=== PATIENT | female | born 1935 | race Caucasian/White ===

== ENCOUNTER → 2020-01-31 | Outpatient (CLI) | payer MEDICARE, OTHER ==
[~2020-01-31] MED LIST: HYDR-3101 PO; LEXISCAN IV ONE
--- NOTE | 2020-01-31 14:02 | STRESS ---
DATE OF SERVICE: 01/31/2020 CARDIAC STRESS TEST INDICATION FOR PROCEDURE: Chest pain. Baseline EKG shows normal sinus rhythm with nonspecific ST-T wave changes. Stress EKG shows normal sinus rhythm, unchanged from baseline. At recovery, EKG shows normal sinus rhythm, unchanged from baseline. Baseline blood pressure is noted to be 141/70 and remained the same during stress. At recovery, the blood pressure was 143/78. Baseline heart rate is 74 beats per minute and sharon to 93 beats per minute during stress. At recovery, the heart rate is 83 beats per minute. Blood pressure and heart rate were appropriate for stress. There were no significant symptoms noted during stress. There were no arrhythmias noted during stress. EKG portion of stress test is negative for myocardial ischemia. Nuclear images reveal homogeneous tracer distribution across all wall segments in both rest and stress images with no evidence of myocardial ischemia or infarction. TID is 2.39. Left ventricular ejection fraction is 77%. EDV is 23 mL, ESV is 5 mL. The left ventricle is normal in size. Gated motion images show normal wall motion across all segments of the left ventricle. IMPRESSION: 1. Normal myocardial perfusion imaging with no evidence of myocardial ischemia or infarction. 2. Left ventricular ejection fraction of 77%. 3. This is a negative study. SILVA LASSITER D.O. : BETINA/lefty JOB# [id number]
--- NOTE | 2020-01-31 20:07 | PCM.ECHO ---
APPROVED REPORT EXAM: Comprehensive 2D, Doppler, and color-flow Echocardiogram. Patient Location: OUT-PATIENT Indications Dyspnea 2D Dimensions LVOT Diameter 2.02 (1.8-2.4cm) LVEF(%) 45.58 (>50%) M-Mode Dimensions Left Atrium(MM) 5.10 (2.5-4.0cm) IVSd 0.85 (0.7-1.1cm) Aortic Root 2.55 (2.2-3.7cm) LVDd 5.10 (4.0-5.6cm) Aortic Cusp Exc 1.55 (1.5-2.0cm) PWd 0.65 (0.7-1.1cm) MV EPSS 0.43 (<0.5cm) IVSs 1.20 cm FS (%) 30.30 % LVDs 3.55 (2.0-3.8cm) ESV(Teich) 53.67 ml PWs 0.60 cm LVEF(%) 57.33 (>50%) Volumes Biplane 2D LV Volumes Biplane 2D LA Volumes LVESv A2C LA ESV A4C 22.18 mL/m2 LVEDv A4C 42.81 mL LA ESV Index LVESv A4C 31.02 mL Aortic Valve AoV Peak Carlos A. 1.10 m/s AoV VTI 26.65 cm AO Peak GR. 5.20 mmHg AO Mean GR. 3.90 mmHg LVOT VTI 18.11 cm LVOT Peak Carlos A. 0.72 m/s HALLIE(VTI)/BSA 2.18 cm2/m2 HALLIE (VTI) 2.18 cm2 AI P 1/2 Time 892.80 ms Mitral Valve MV E Velocity 0.70m/s MR Peak Gr. 32.40mmHg MV A Velocity 0.90m/s MV Mean Gr. 1.20mmHg E/A Ratio 0.8 TDI Lateral E' P. V 0.08m/s Medial E' P. V 0.05m/s E/Lateral E' 8.8 E/Medial E' 14.0 E/Septal E 14.0 Pulmonary Valve PV Peak Velocity 0.70m/s PV Peak Grad. 2.00mmHg RVOT VTI 15.24cm Tricuspid Valve TR P. Velocity 2.10m/s RAP ESTIMATE 10.00mmHg TR Peak Gr. 18.41mmHg RVSP 28.41mmHg LEFT VENTRICLE The left ventricle is normal size. The left ventricular systolic function is normal. The left ventricular ejection fraction is within the normal range. There is normal left ventricular wall thickness. There is normal LV segmental wall motion. There is no ventricular septal defect visualized. No left ventricle thrombus noted on this study. LVEF is 60-65%. RIGHT VENTRICLE The right ventricle is normal size. The right ventricular systolic function is normal. There is normal right ventricular wall thickness. ATRIA The left atrium size is normal. The right atrium size is normal. The interatrial septum is intact with no evidence for an atrial septal defect. AORTIC VALVE The aortic valve is normal in structure. There is no aortic valvular stenosis. Moderate to severe aortic regurgitation There is no aortic valvular vegetation. MITRAL VALVE The mitral valve is normal in structure. There is no mitral valve stenosis. Mild mitral regurgitation. There is no evidence of mitral valve vegetations. TRICUSPID VALVE The tricuspid valve is normal in structure. There is no tricuspid valve stenosis. Mild to moderate tricuspid regurgitation. There is no tricuspid valve vegetations. PULMONIC VALVE The pulmonary valve is normal in structure. There is no pulmonic valvular stenosis. Moderate pulmonic regurgitation. GREAT VESSELS The aortic root is normal in size. Pulmonary artery is not well visualized. Aortic arch is not well visualized. The IVC is normal in size and collapses >50% with inspiration. PERICARDIUM There is no pericardial effusion. There is no pleural effusion. Other Information Study Quality: Fair <Conclusion> The left ventricular systolic function is normal. LVEF is 60-65%. Moderate to severe aortic regurgitation Mild mitral regurgitation. Mild to moderate tricuspid regurgitation. Moderate pulmonic regurgitation. Electronically signed by : SILVA LASSITER. 01/31/2020 20:07:18
== END | disposition home or self-care (01) ==
LOC: RAD 10:25
PROVIDERS: ATTEND Internal Medicine Interventional Cardiology
DX: I08.8 Other rheumatic multiple valve diseases (principal); R06.02 Shortness of breath
CPT/HCPCS: 78452; 93017; 93306; A9500; J2785

== ENCOUNTER → 2020-02-11 | Outpatient (CLI) | payer MEDICARE, OTHER ==
[~2020-02-11] MED LIST changes: -LEXISCAN IV ONE
--- NOTE | 2020-02-14 13:55 | PRP ---
DATE OF PROCEDURE: 02/11/2020 VENOUS MAPPING ULTRASOUND INDICATION FOR PROCEDURE: Chronic venous insufficiency. RIGHT LOWER EXTREMITY: The right greater saphenous vein measures 10 mm in maximum diameter. Significant reflux is noted in the right GSV with maximum reflux of 2.7 seconds. The right GSV is noted to be extremely tortuous. The right small saphenous vein measures 2 mm in its maximum diameter. Significant reflux is also noted in the right small saphenous vein with maximum reflux of 1.7 seconds. There is no evidence of deep venous thrombosis in the right lower extremity. LEFT LOWER EXTREMITY: Left greater saphenous vein measures 12 mm in its maximum diameter. Significant reflux is noted in the left GSV with maximum reflux of 3.3 seconds. The left small saphenous vein measures 3 mm in its maximum diameter. Significant reflux is also noted in the left small saphenous vein with maximum reflux of 2.2 seconds. There is no evidence of deep venous thrombosis in the left lower extremity. A Matute's cyst measuring 5.2 x 2.1 x 3.0 cm is visualized adjacent to the popliteal vessels. IMPRESSION: 1. The right greater saphenous vein is dilated and displays pathological reflux. 2. The right small saphenous vein is normal sized but displays pathological reflux. 3. The left greater saphenous vein is dilated and displays pathological reflux. 4. The left small saphenous vein is normal sized but displays pathological reflux. 5. There is no evidence of deep venous thrombosis in the bilateral lower extremities. 6. An incidental finding of a Matute's cyst is visualized adjacent to the left popliteal vessel. RECOMMENDATION: Conservative measures of therapy including the use of compression stockings, leg elevation and exercise are recommended if clinically indicated. SILVA LASSITER D.O. DR: BETINA/lefty JOB# [id number]
== END | disposition home or self-care (01) ==
LOC: RAD 12:55
PROVIDERS: ATTEND Internal Medicine Interventional Cardiology
DX: I87.2 Venous insufficiency (chronic) (peripheral) (principal); I73.9 Peripheral vascular disease, unspecified; R06.02 Shortness of breath; M71.22 Synovial cyst of popliteal space [Baker], left knee
CPT/HCPCS: 93970

== ENCOUNTER → 2020-02-18 | Outpatient (CLI) | payer MEDICARE, OTHER ==
--- NOTE | 2020-02-21 11:55 | PRP ---
DATE OF PROCEDURE: 02/21/2020 ARTERIAL DOPPLER ULTRASOUND INDICATION FOR PROCEDURE: Intermittent claudication. RIGHT LOWER EXTREMITY: The right common femoral artery has a maximum flow velocity of 144 cm/sec with biphasic waveforms visualized. The right profunda femoris artery has a flow velocity of 160 cm/sec with biphasic waveforms visualized. The right superficial femoral artery has biphasic waveforms seen throughout with a maximum flow velocity of 129 cm/sec. The right popliteal artery has biphasic waveforms seen throughout with a maximum flow velocity of 67 cm/sec. The right posterior tibial artery has biphasic waveforms seen throughout with a maximum flow velocity of 127 cm/sec. The right anterior tibial artery has biphasic waveforms seen throughout with a maximum flow velocity of 96.7 cm/sec. The right lower extremity ankle-brachial index is 1.0. LEFT LOWER EXTREMITY: Biphasic waveforms are visualized in the entire left lower extremity. The left FARMWORKER MACHINE has a maximum flow velocity of 197 cm/sec. The left profunda femoris artery has a maximum flow velocity of 157.5 cm/sec. The left SFA has a maximum flow velocity of 106.5 cm/sec. The left popliteal artery has a maximum flow velocity of 96.8 cm/sec. The left posterior tibial artery has a maximum flow velocity of 125.9 cm/sec. The maximum flow velocity of the left anterior tibial artery is 112.9 cm/sec. The left lower extremity ankle-brachial index is 1.0. IMPRESSION: 1. There is no evidence of hemodynamically significant stenosis in the right lower extremity. 2. There is no evidence of hemodynamically significant stenosis in the left lower extremity. 3. Bilateral ABIs are noted to be within normal limits. SILVA LASSITER D.O. DR: Jo JOB# [id number]
== END | disposition home or self-care (01) ==
LOC: RAD 11:26
PROVIDERS: ATTEND Internal Medicine Interventional Cardiology
DX: I70.213 Atherosclerosis of native arteries of extremities with intermittent claudication, bilateral legs (principal); R06.02 Shortness of breath; I87.2 Venous insufficiency (chronic) (peripheral)
CPT/HCPCS: 93922; 93925

== ENCOUNTER 2020-03-10 13:17 | Emergency (ER) | payer MEDICARE, OTHER ==
[~2020-03-10] VITALS: Ht 154.9 cm; Wt 68.0 kg
[2020-03-10 13:30] VITALS: BP 145/73
[2020-03-10 14:01] VITALS: BP 145/73
--- NOTE | 2020-03-10 14:33 | ER.PDOC ---
General Chief Complaint: Skin Rash/Abscess Stated Complaint: PAIN RIGHT LEG Time seen by MD: 14:26 Source: patient Exam Limitations: no limitations History of Present Illness Initial Comments patient c/o red/warm place on medial right knee x 2-3 days; she is concerned about possible blood clot (history of lymphoma) Onset: other (2-3 days) Recent Injury: No Severity: mild Exacerbated By: nothing Relieved By: nothing Allergies: Coded Allergies: No Known Allergies (Unverified , 05/02/14) Home Meds Reported Medications Hydrocodone Bit/Acetaminophen (NORCO 7.5-325) 1 Each Tablet, 1 EACH PO Q4H PRN for PAIN, #30 TAB 05/03/14 Past Medical History Medical History: cancer, other Surgical History: no surgical history Family History Significant Family History: no pertinent family hx Social History Smoking: non-smoker Alcohol Use: none Drug Use: none Review of Systems Constitutional: no symptoms reported EENTM: no symptoms reported Respiratory: no symptoms reported Cardiovascular: no symptoms reported Gastrointestinal: no symptoms reported Genitourinary: no symptoms reported Musculoskeletal: no symptoms reported Skin: see HPI Psychiatric/Neurological: no symptoms reported All Other Systems: Reviewed and Negative Physical Exam General Appearance: Alert, No Apparent Distress Lower Extremity: tenderness (and erythematous 5 cm region medial right knee; no abscess/fluid pocket noted; induration present) Joint Exam: joints nml, nml ROM, nml gait/weight bearing Vascular: no vascular compromise, pulses full/equal Neuro/Psych: sensation nml, motor nml, oriented x3 Skin: color nml, warm/dry Respiratory: no resp distress, breath sounds nml CVS: reg rate & rhythm, heart sounds nml Abdomen: non-tender Results/Orders Results/Orders Orders - SANJANA MARINO DO D-Dimer (03/10/20 14:20) Us Rt Vein U/L (03/10/20 15:36) Vital Signs Date Time Temp Pulse Resp B/P (MAP) Pulse Ox O2 Delivery O2 Flow Rate FiO2 03/10/20 14:01 98.4 61 18 145/73 (97) 98 Room Air 03/10/20 13:30 98.4 61 18 03/10/20 13:30 98.4 61 18 98 Laboratory Tests Test 03/10/20 14:58 D-Dimer 0.55 mg/L (0.19-0.49) *H Progress Progress ddimer slightly positive--US ordered EKG/XRAY/CT/US Ultrasound: other (thrombosis and occlusion of GSV; no DVT) ER DEPART Departure Time of Disposition: 16:26 Disposition: 01 HOME, SELF-CARE Impression: Primary Impression: Cellulitis Additional Impression: Greater saphenous vein embolism Condition: Stable Patient Instructions: Cellulitis Referrals: CLIFFORD SAINI MD (PCP) PRIMARY CARE PROVIDER Additional Instructions: Take antibiotics as prescribed until all gone. Take Eliquis 10 mg twice daily for 7 days, then 5 mg twice daily until instructed by your doctor to stop. Alternate Tylenol and Motrin per package instructions every 4 hours as needed for pain. Follow up with your doctor next week for reevaluation. Return to ER if you have worsening signs of infection, increased pain/swelling to leg, chest pain, shortness of breath, or for any emergent concerns. Duration or Time Spent with Pa: 15 min Problem Qualifiers Primary Impression: Cellulitis Site of cellulitis: extremity Site of cellulitis of extremity: lower extremity Laterality: right Qualified Codes: L03.115 - Cellulitis of right lower limb Additional Impression: Greater saphenous vein embolism Laterality: right Qualified Codes: I82.811 - Embolism and thrombosis of superficial veins of right lower extremity SANJANA MARINO DO Mar 10, 2020 14:33
[2020-03-10 15:00] VITALS: BP 154/64
[2020-03-10 16:00] VITALS: BP 152/60
--- NOTE | 2020-03-10 16:21 | DIREP ---
PROCEDURE:US DUPLEX EXTREM VEINS UNILATER/LIMITED-RT COMPARISON:None. INDICATIONS:dvt RLE possible TECHNIQUE:The right lower extremity was evaluated utilizing barger scale images with segmental compression, color Doppler, and spectral Doppler with respiratory variation and augmentation. FINDINGS: Common femoral vein:Patent Profunda femoris vein: Patent Superficial femoral vein:Patent Popliteal vein:Patent Posterior tibial vein:Patent Peroneal vein: Patent Anterior tibial vein:Patent Greater saphenous vein:Occluded Waveforms: Within normal limits. CONCLUSION:There are no findings of deep venous thrombosis in the right lower extremity. However, there are findings of thrombosis and occlusion of the greater saphenous vein. Dictated by: CHASIDY Physician on 03/10/2020 at 04:15 PM bs
[2020-03-10] MEDS ORDERED: LOVENOX SQ ONE (16:25)
[2020-03-10] MEDS: LOVENOX SQ STA (16:28)
[2020-03-10] MEDS ORDERED: KEFLEX PO ONE (16:32)
[2020-03-10] MEDS: KEFLEX PO STA (16:37)
== END 2020-03-10 16:40 | disposition home or self-care (01) ==
LOC: ER 13:17
DX: I82.811 Embolism and thrombosis of superficial veins of right lower extremity (principal); L03.115 Cellulitis of right lower limb
CPT/HCPCS: 36415; 85379; 93971; 96372; 99284; J1650

== ENCOUNTER → 2020-04-12 | Outpatient (CLI) | payer MEDICARE, OTHER ==
--- NOTE | 2020-04-12 14:53 | DIREP ---
PROCEDURE:Digital Screening Mammogram TECHNIQUE:MLO, CC, and XCCL digital images of each breast are provided. Computer Assisted Detection (CAD) was utilized. COMPARISON:[facility], MAMMO BILATERAL SCREENING WITH CAD, 04/23/2016, 11:47 AM. [facility], MAMMO BILATERAL SCREENING, 03/27/2015, 10:51 AM. [facility], DIGITAL MAMMO SCREENING, 03/09/2014, 10:39 AM. [facility], DIGITAL MAMMO SCREENING, 03/03/2013, 11:29 AM. [facility], DIGITAL MAMMO SCREENING, 03/02/2012, 10:49 AM. [facility], MAMMO BILATERAL SCREENING, 05/22/2017, 11:22 AM. INDICATIONS:SCREENING BREAST COMPOSITION:The breasts are almost entirely fatty. FINDINGS:There are no grouped microcalcifications, masses, or architectural distortions to suggest malignancy. There is no significant change as compared with the previous examination(s). IMPRESSION:No mammographic evidence of malignancy. RECOMMENDATIONS:Routine Screening Mammography per [employer] guidelines. OVERALL FINAL ASSESSMENT:BI-RADS 1 - Negative Mammogram Note: This facility participates in a mammography screening patient reminder system. Dictated by: Ryan Arevalo M.D. on 04/12/2020 at 02:49 PM
--- NOTE | 2020-04-12 15:49 | DIREP ---
PROCEDURE:BONE DENSITY PERIPHERAL COMPARISON:None. INDICATIONS:OSTEOPOROSIS SCREENING TECHNIQUE:A dual photon bone densitometry was performed in the lumbar spine and in both hips. FINDINGS:The bone density from L1 through L4 is 1.107 grams/cm2. The standard deviation of the T-score is-0.7. The bone density in the left femoral neck is 0.787 grams/cm2. The standard deviation of the T-score is-1.8. The bone density in the right hip is 0.743 grams/cm2. The standard deviation of the T-score is-2.1. Based upon these values the patient has osteopenia. The 10 year FRAX probability is as follows: The patient has a 5.1% chance of a insufficiency hip fracture and a 15.8% chance of a major osteoporotic fracture. CONCLUSION:Osteopenia. Ten year FRAX probability as above. Dictated by: Edgar Angeles MD on 04/12/2020 at 03:47 PM
== END | disposition home or self-care (01) ==
LOC: RAD 13:40
PROVIDERS: ATTEND Internal Medicine
DX: Z12.31 Encounter for screening mammogram for malignant neoplasm of breast (principal); Z13.820 Encounter for screening for osteoporosis; M85.88 Other specified disorders of bone density and structure, other site
CPT/HCPCS: 77067; 77080

== ENCOUNTER 2020-12-08 09:47 | Emergency (ER) | payer MEDICARE, OTHER ==
[~2020-12-08] VITALS: Ht 152.4 cm; Wt 68.0 kg
--- NOTE | 2020-12-08 10:00 | NUR ---
ARRIVAL PATIENT ARRIVED TO ED3 AMBULATORY, C/O HIGH BLOOD PRESSURE FOR THE PAST 2 DAYS, CALLED HER PCP AND WAS TOLD HE WAS OUT OF THE OFFICE UNTIL FRIDAY AND TO COME TO THE ED FOR EVAL, VITAL SIGNS OBTAINED AND DOCTOR POLO NOTIFIED OF PATIENT'S ARRIVAL.
[2020-12-08 10:31] VITALS: BP 190/81
[2020-12-08] MEDS ORDERED: LOSA50TA14 PO (10:37)
--- NOTE | 2020-12-08 10:52 | ER.PDOC ---
General Chief Complaint: General Complaint Stated Complaint: HIGH BP TRAVEL OUT OF US: No Time seen by MD: 10:32 Source: patient Exam Limitations: no limitations History of Present Illness Initial Comments This 85-year-old female comes in with complaint of hypertension. She stated when she got up this morning took her blood pressure at home it was over 200 on the systolic number so she called Dr. Rose's office to try to get an appointment but he is out of town and they recommended she come to the ED. On arrival here her blood pressure was 190/81. Patient is totally asymptomatic f rom this. She stated that she just checked her blood pressure just randomly yesterday morning and found it high which stressed throughout all day long and she stated pretty sedated her pressure stayed high throughout the whole day. So when she got up this morning she was already distressed about it and took her blood pressure again and again found it high. The nurse asked me if I want to do anything with her and his ability to let her sit and relax for a little bit and see what happens to her pressure. Her blood pressure now is 150/84. it just recycled again and it is 157/65. I recommended that she just go home and relax take it easy make an appointment to follow-up with her PCP sometime in the next couple weeks. Recommend that she not be taken her blood pressure unless she has some kind of symptoms that would suggest its high such as a headache blurred vision nausea any chest pain anything like that then check her pressure. If she has bad chest pain she needs to check her pressure and come to the ED. Timing/Duration: 24 hours Severity: moderate Modifying Factors: improves with medication (She did take her blood pressure medicine after she checked her blood pressure both yesterday morning and today) Associated Symptoms: denies symptoms Allergies: Coded Allergies: No Known Allergies (Unverified , 05/02/14) Home Meds Reported Medications Losartan Potassium (LOSARTAN POTASSIUM) 50 Mg Tablet, 1 TAB PO DAILY, #90 TAB 3 Refills 12/08/20 Hydrocodone Bit/Acetaminophen (NORCO 7.5-325) 1 Each Tablet, 1 EACH PO Q4H PRN for PAIN, #30 TAB 05/03/14 Past Medical History Medical History: hypertension Surgical History: no surgical history Social History Smoking: non-smoker Alcohol Use: none Drug Use: none Review of Systems All Other Systems: Reviewed and Negative Physical Exam General Appearance: No Apparent Distress EENT: eyes nml inspection, nml ENT inspection Neck: Non-Tender, Full Range of Motion, Supple, Normal Inspection Respiratory: chest non-tender, lungs clear, normal breath sounds, no accessory muscle use CVS: reg rate & rhythm, no murmur, no gallop, nml capillary refill Gastrointestinal: Normal Bowel Sounds, No Organomegaly, No Pulsatile Mass, Non Tender Back: Normal Inspection Extremities: Normal Range of Motion, Non-Tender, Normal Inspection, No Pedal Edema Neurologic/Psychiatric: scale technician II-XII NML as Tested, No Motor/Sensory Deficits, Alert, Oriented x 3 Skin: Normal Color, Warm/Dry Lymphatic: No Adenopathy Results/Orders Results/Orders Vital Signs Date Time Temp Pulse Resp B/P (MAP) Pulse Ox O2 Delivery O2 Flow Rate FiO2 12/08/20 10:31 98.3 82 18 12/08/20 10:31 98.3 82 18 190/81 (117) 97 Room Air 12/08/20 10:31 98.3 82 18 97 ER DEPART Departure Time of Disposition: 10:50 Disposition: 01 HOME / SELF CARE / HOMELESS Impression: Primary Impression: HTN (hypertension), benign Condition: Improved Referrals: CLIFFORD SAINI MD (PCP) PRIMARY CARE PROVIDER Duration or Time Spent with Pa: 15m ALEXANDER CUELLAR MD Dec 08, 2020 10:52
== END 2020-12-08 10:53 | disposition home or self-care (01) ==
LOC: ER 09:47
DX: I10 Essential (primary) hypertension (principal); Z79.899 Other long term (current) drug therapy
CPT/HCPCS: 99281